=== PATIENT | female | born 1995 | race African-American/Black ===

== ENCOUNTER 2023-05-01 11:33 | Inpatient (IN) | payer OTHER ==
[2023-05-01 12:26] VITALS: BMI 26.3
[2023-05-01 13:11] LABS: BASO % 0.1 % (0-2.0); EOS % 0.8 % (0-4.5); HEMATOCRIT 38.3 % (32.4-45.2); HEMOGLOBIN 12.9 GM/dL (10.7-15.3); LYMPH % 11.3 % (8-40); MCH 32.4 pg (25.7-33.7); MCHC 33.7 g/dl (32.0-36.0); MEAN PLT VOLUME 8.3 fl (7.5-11.1); MONO % 5.6 % (3.8-10.2); NEUT % 82.2 % (42.8-82.8); PLATELET COUNT 284 10^3/uL (134-434); RBC 3.99 M/mm3 (3.60-5.2); RDW 13.1 % (11.6-15.6); WHITE BLOOD COUNT 9.6 K/mm3 (4.0-10.0)
[2023-05-01 13:20] LABS: POTASSIUM 4.3 mmol/L (3.5-5.1)
[2023-05-01 13:22] LABS: CALCIUM 9.4 mg/dL (8.5-10.1)
[2023-05-01 13:23] LABS: ALBUMIN 3.9 g/dl (3.4-5.0)
[2023-05-01 13:26] LABS: CREATININE 0.7 mg/dL (0.55-1.3)
[2023-05-01 13:27] LABS: TOT PROT 7.6 g/dl (6.4-8.2)
[2023-05-01 13:28] LABS: BILIRUBIN,TOTAL 0.5 mg/dL (0.2-1)
[2023-05-01] MEDS ORDERED: morphine SULFATE 4 MG/ML VIAL ONE (13:37)
[2023-05-01] MEDS: morphine SULFATE 4 MG/ML VIAL IVPUSH ONE (13:38)
[2023-05-01] MEDS ORDERED: morphine CARPU-JECT 4 MG/1 ML DISP.SYRIN IVPUSH ONE (13:45)
[2023-05-01] MEDS ORDERED: KETOROLAC TROMETHAMINE 30 MG/1 ML VIAL ONE (14:05)
[2023-05-01] MEDS ORDERED: LIDOCAINE 4% PATCH TP ONE (14:05)
[2023-05-01] MEDS: LIDOCAINE 4% PATCH TP ONE (14:52)
[2023-05-01] MEDS: SODIUM CHLORIDE 0.9% 500 ML INFUS.BAG IV ONE (14:53)
[2023-05-01] MEDS: KETOROLAC TROMETHAMINE 30 MG/1 ML VIAL IVPUSH ONE (14:53)
[2023-05-01 16:57] LABS: URINE APPEARANCE CLEAR; URINE BILIRUBIN NEGATIVE (NEGATIVE); URINE COLOR YELLOW; URINE GLUCOSE (UA) NEGATIVE (NEGATIVE); URINE KETONE 15 mg/dl (NEGATIVE); URINE NITRITE NEGATIVE (NEGATIVE); URINE PROTEIN NEGATIVE (NEGATIVE)
[2023-05-01 16:58] LABS: URINE LEUK ESTERASE NEGATIVE (NEGATIVE)
[2023-05-01] MEDS: methylPREDNISolone 8 MG TABLET PO ONE (18:29)
[2023-05-01] MEDS ORDERED: KETOROLAC TROMETHAMINE 15 MG/ML VIAL ONE (20:17)
[2023-05-01] MEDS: KETOROLAC TROMETHAMINE 15 MG/ML VIAL IVPUSH PRN (21:30)
[2023-05-01] MEDS: GABAPENTIN 400 MG CAPSULE PO SCH (23:36)
[2023-05-01] MEDS: ACETAMINOPHEN 500 MG TABLET (FP) PO PRN (23:36)
[2023-05-01] MEDS: LIDOCAINE PATCH REMOVAL MC ONE (23:38)
[2023-05-02 08:45] LABS: METHADONE, UR NEGATIVE (NEGATIVE); PHENCYCLIDINE,URINE NEGATIVE (NEGATIVE); URINE AMPHETAMINES NEGATIVE (NEGATIVE); URINE BENZODIAZEPINES NEGATIVE (NEGATIVE)
[2023-05-02 08:46] LABS: URINE BARBITURATES NEGATIVE (NEGATIVE)
[2023-05-02 08:47] LABS: COCAINE, UR NEGATIVE (NEGATIVE); OPIATES, URI POSITIVE (NEGATIVE)
[2023-05-02] MEDS ORDERED: KETOROLAC TROMETHAMINE 30 MG/1 ML VIAL IVPUSH PRN (08:59)
[2023-05-02] MEDS: morphine SULFATE 4 MG/ML VIAL IVPUSH PRN (10:01)
[2023-05-02] MEDS: PIPERACILLIN/TAZOB 3.375 GM 3.375 GM in DEXTROSE 5%-WATER - 50 ML IVPB SCH ×3 (10:06→17:41)
[2023-05-02] MEDS: VANCOMYCIN PREMIX 1.5 GM 1,500 MG/300 ML BAG IVPB SCH (12:47)
[2023-05-02] MEDS: ACETAMINOPHEN 500 MG TABLET (FP) PO SCH (14:41)
[2023-05-02] MEDS: LIDOCAINE 4% PATCH TP SCH (14:45)
[2023-05-02] MEDS: KETOROLAC TROMETHAMINE 30 MG/1 ML VIAL IVPUSH SCH (14:46)
[2023-05-02] MEDS ORDERED: ACETAMINOPHEN 1000 MG/100 ML BAG IVPB SCH (16:45)
[2023-05-02] MEDS ORDERED: VANCOMYCIN/WATER FOR INJ (PEG) 1,000 MG/200 ML BAG IVPB SCH (16:45)
[2023-05-02] MEDS: VANCOMYCIN HCL 1,500 MG in DEXTROSE 5%-WATER - 250 ML IVPB SCH (17:02)
[2023-05-02] MEDS: PANTOPRAZOLE SODIUM 40 MG VIAL IVPUSH SCH (17:21)
[2023-05-02] MEDS: oxyCODONE HCL 5 MG TABLET PO PRN (20:25)
[2023-05-02] MEDS: LIDOCAINE PATCH REMOVAL MC SCH (21:44)
[2023-05-03] MEDS: ACETAMINOPHEN 1000 MG/100 ML BAG IVPB SCH (00:48)
[2023-05-03] MEDS: morphine SULFATE 4 MG/ML VIAL IVPUSH PRN (02:55)
[2023-05-03 09:47] LABS: BASO % 0.1 % (0-2.0); EOS % 1.7 % (0-4.5); HEMATOCRIT 32.8 % (32.4-45.2); LYMPH % 13.8 % (8-40); MCHC 33.5 g/dl (32.0-36.0); MEAN CELL VOLUME 95.6 fl (80-96); MEAN PLT VOLUME 7.4 fl (7.5-11.1); MONO % 5.7 % (3.8-10.2); NEUT % 78.7 % (42.8-82.8); PLATELET COUNT 227 10^3/uL (134-434); RBC 3.43 M/mm3 (3.60-5.2); RDW 13.3 % (11.6-15.6)
[2023-05-03 10:19] LABS: POTASSIUM 3.2 mmol/L (3.5-5.1)
[2023-05-03 10:25] LABS: CREATININE 0.6 mg/dL (0.55-1.3)
[2023-05-03 10:26] LABS: BILIRUBIN,TOTAL 0.5 mg/dL (0.2-1)
[2023-05-03 10:29] LABS: ALBUMIN 2.8 g/dl (3.4-5.0)
[2023-05-03] MEDS: ENOXAPARIN NA (PORCINE) 40 MG/0.4 ML DISP.SYRIN SQ SCH (10:58)
[2023-05-03] MEDS: GABAPENTIN 400 MG CAPSULE PO SCH (10:58)
[2023-05-03 11:14] LABS: HIV INTERPRETATION NEGATIVE (NEGATIVE)
[2023-05-03] MEDS ORDERED: PANTOPRAZOLE 40 MG TABLET PO SCH (12:15)
[2023-05-03] MEDS: POTASSIUM CHLORIDE TABS 20 MEQ TABLET.ER (FP) PO ONE (13:50)
[2023-05-03] MEDS: morphine SULFATE 4 MG/ML VIAL IVPUSH ONE (15:28)
[2023-05-03 16:06] LABS: CSF APPEARANCE CLEAR (CLEAR); CSF COLOR COLORLESS (COLORLESS); CSF WBC 0 mm3 (0-5)
[2023-05-03] MEDS: oxyCODONE HCL 5 MG TABLET PO PRN (16:53)
[2023-05-03 16:55] LABS: BF GLUCOSE (CSF ONLY) 60 mg/dL (40-70)
[2023-05-04] MEDS: ACETAMINOPHEN 1000 MG/100 ML BAG IVPB ONE (05:46)
[2023-05-04 08:36] LABS: POTASSIUM 3.8 mmol/L (3.5-5.1)
[2023-05-04 08:40] LABS: ALBUMIN 2.8 g/dl (3.4-5.0); BLOOD UREA NITROGEN 7.3 mg/dL (7-18); CALCIUM 8.5 mg/dL (8.5-10.1)
[2023-05-04 08:43] LABS: CREATININE 0.6 mg/dL (0.55-1.3)
[2023-05-04 08:45] LABS: BASO % 0.1 % (0-2.0); BILIRUBIN,TOTAL 0.6 mg/dL (0.2-1); EOS % 1.9 % (0-4.5); HEMATOCRIT 32.3 % (32.4-45.2); HEMOGLOBIN 10.9 GM/dL (10.7-15.3); LYMPH % 6.6 % (8-40); MCH 32.2 pg (25.7-33.7); MCHC 33.9 g/dl (32.0-36.0); MEAN CELL VOLUME 95.1 fl (80-96); MONO % 4.5 % (3.8-10.2); NEUT % 86.9 % (42.8-82.8); PLATELET COUNT 233 10^3/uL (134-434); RDW 12.8 % (11.6-15.6); TOT PROT 6.3 g/dl (6.4-8.2); WHITE BLOOD COUNT 9.9 K/mm3 (4.0-10.0)
[2023-05-04] MEDS: PANTOPRAZOLE 40 MG TABLET PO SCH (10:26)
[2023-05-04] MEDS: LIDOCAINE 4% PATCH TP SCH (10:26)
[2023-05-04] MEDS ORDERED: VANCOMYCIN/WATER FOR INJ (PEG) 1,000 MG/200 ML BAG IVPB ONE (11:30)
[2023-05-04] MEDS: diphenhydrAMINE HCL 25 MG CAPSULE (FP) PO ONE (11:31)
[2023-05-04] MEDS: AZITHROMYCIN IVPB 500 MG/250 ML BAG IVPB SCH (12:44)
[2023-05-04] MEDS: ACETAMINOPHEN 1000 MG/100 ML BAG IVPB PRN (13:12)
[2023-05-04] MEDS: TRIMETHOBENZAMIDE HCL 200MG/2ML INJ IM PRN (18:26)
[2023-05-04] MEDS: NORTRIPTYLINE HCL 25 MG CAPSULE PO SCH (22:06)
[2023-05-05 10:02] LABS: BASO % 0.1 % (0-2.0); EOS % 2.7 % (0-4.5); HEMATOCRIT 31.8 % (32.4-45.2); HEMOGLOBIN 10.8 GM/dL (10.7-15.3); LYMPH % 14.3 % (8-40); MCH 32.2 pg (25.7-33.7); MEAN CELL VOLUME 94.5 fl (80-96); MEAN PLT VOLUME 7.9 fl (7.5-11.1); MONO % 5.1 % (3.8-10.2); NEUT % 77.8 % (42.8-82.8); PLATELET COUNT 274 10^3/uL (134-434); RBC 3.36 M/mm3 (3.60-5.2); WHITE BLOOD COUNT 11.6 K/mm3 (4.0-10.0)
[2023-05-05 10:19] LABS: CALCIUM 8.6 mg/dL (8.5-10.1)
[2023-05-05 10:21] LABS: ALBUMIN 2.6 g/dl (3.4-5.0); BLOOD UREA NITROGEN 5.9 mg/dL (7-18)
[2023-05-05 10:24] LABS: CREATININE 0.6 mg/dL (0.55-1.3)
[2023-05-05 10:25] LABS: BILIRUBIN,TOTAL 0.5 mg/dL (0.2-1); TOT PROT 6.2 g/dl (6.4-8.2)
[2023-05-05 10:43] LABS: ERYTHROCYTE SEDIMENTATION RATE 89 mm/hr (0-20)
[2023-05-05] MEDS: ACETAMINOPHEN 1000 MG/100 ML BAG IVPB PRN (17:45)
[2023-05-06 18:37] LABS: N-TERMINAL BNP 40.2 pg/ml (5-125)
[2023-05-07 08:50] LABS: BASO % 0.3 % (0-2.0); EOS % 4.8 % (0-4.5); HEMATOCRIT 32.3 % (32.4-45.2); HEMOGLOBIN 11.3 GM/dL (10.7-15.3); LYMPH % 36.4 % (8-40); MCH 32.8 pg (25.7-33.7); MEAN CELL VOLUME 93.7 fl (80-96); MEAN PLT VOLUME 7.5 fl (7.5-11.1); MONO % 5.6 % (3.8-10.2); NEUT % 52.9 % (42.8-82.8); PLATELET COUNT 358 10^3/uL (134-434); RBC 3.45 M/mm3 (3.60-5.2); RDW 12.9 % (11.6-15.6); WHITE BLOOD COUNT 5.6 K/mm3 (4.0-10.0)
[2023-05-07 08:55] LABS: POTASSIUM 4.3 mmol/L (3.5-5.1)
[2023-05-07 09:01] LABS: CALCIUM 9.1 mg/dL (8.5-10.1)
[2023-05-07 09:02] LABS: ALBUMIN 2.7 g/dl (3.4-5.0); BLOOD UREA NITROGEN 8.3 mg/dL (7-18)
[2023-05-07 09:06] LABS: CREATININE 0.6 mg/dL (0.55-1.3); TOT PROT 6.8 g/dl (6.4-8.2)
[2023-05-07 09:07] LABS: BILIRUBIN,TOTAL 0.2 mg/dL (0.2-1)
[2023-05-07] MEDS ORDERED: ALBUTEROL SO4 2.5/IPRATROPIUM 0.5 INH SOL 3 ML VIAL.NEB. NEB PRN (10:54)
[2023-05-07] MEDS ORDERED: PIPERACILLIN/TAZOBACTAM 3.375 GM VIAL IVPB ONE (17:13)
[2023-05-08 09:36] LABS: BASO % 0.3 % (0-2.0); EOS % 6.2 % (0-4.5); HEMATOCRIT 35.6 % (32.4-45.2); LYMPH % 42.8 % (8-40); MCH 31.7 pg (25.7-33.7); MCHC 33.7 g/dl (32.0-36.0); MEAN CELL VOLUME 94.1 fl (80-96); MEAN PLT VOLUME 7.5 fl (7.5-11.1); MONO % 6.8 % (3.8-10.2); NEUT % 43.9 % (42.8-82.8); PLATELET COUNT 471 10^3/uL (134-434); RBC 3.79 M/mm3 (3.60-5.2); RDW 12.5 % (11.6-15.6); WHITE BLOOD COUNT 5.6 K/mm3 (4.0-10.0)
[2023-05-08 09:52] LABS: CHLORIDE 106 mmol/L (98-107); POTASSIUM 4.3 mmol/L (3.5-5.1); SODIUM 138 mmol/L (136-145)
[2023-05-08 09:57] LABS: CALCIUM 9.4 mg/dL (8.5-10.1)
[2023-05-08 09:58] LABS: ANION GAP 6 mmol/L (4-13); BILIRUBIN,TOTAL 0.3 mg/dL (0.2-1); BLOOD UREA NITROGEN 9.5 mg/dL (7-18); CO2 26 mmol/L (21-32); GLUCOSE,RANDOM 76 mg/dL (74-106); TOT PROT 7.5 g/dl (6.4-8.2)
[2023-05-08 09:59] LABS: URIC ACID 2.3 mg/dL (2.6-7.2)
[2023-05-08 10:00] LABS: CREATININE 0.6 mg/dL (0.55-1.3); SGOT/AST 17 U/L (15-37); SGPT/ALT 13 U/L (13-61)
[2023-05-08 10:02] LABS: ALK PHOS 62 U/L (45-117)
[2023-05-08 11:39] LABS: ERYTHROCYTE SEDIMENTATION RATE 100 mm/hr (0-20)
[2023-05-08 17:08] LABS: CHOLESTEROL 201 mg/dL (50-200)
[2023-05-08 17:09] LABS: LDL CHOLESTEROL (ONLY SJRH) 153 mg/dL (5-100)
[2023-05-08 17:11] LABS: HDL CHOLESTEROL 35 mg/dL (40-60)
[2023-05-09 12:08] LABS: POTASSIUM 4.3 mmol/L (3.5-5.1)
[2023-05-09 12:10] LABS: BASO % 0.3 % (0-2.0); BLOOD UREA NITROGEN 14.3 mg/dL (7-18); CALCIUM 8.7 mg/dL (8.5-10.1); EOS % 5.8 % (0-4.5); HEMATOCRIT 35.6 % (32.4-45.2); LYMPH % 36.6 % (8-40); MCH 31.9 pg (25.7-33.7); MCHC 33.7 g/dl (32.0-36.0); MEAN CELL VOLUME 94.6 fl (80-96); MEAN PLT VOLUME 7.5 fl (7.5-11.1); MONO % 5.9 % (3.8-10.2); NEUT % 51.4 % (42.8-82.8); PLATELET COUNT 484 10^3/uL (134-434); RBC 3.76 M/mm3 (3.60-5.2); RDW 12.7 % (11.6-15.6); WHITE BLOOD COUNT 7.2 K/mm3 (4.0-10.0)
[2023-05-09 12:14] LABS: CREATININE 0.7 mg/dL (0.55-1.3)
[2023-05-09 12:15] LABS: BILIRUBIN,TOTAL 0.2 mg/dL (0.2-1); TOT PROT 7.2 g/dl (6.4-8.2)
[2023-05-09 12:59] LABS: ERYTHROCYTE SEDIMENTATION RATE 92 mm/hr (0-20)
[2023-05-10 10:22] LABS: BASO % 0.2 % (0-2.0); EOS % 5.2 % (0-4.5); HEMATOCRIT 33.3 % (32.4-45.2); HEMOGLOBIN 11.5 GM/dL (10.7-15.3); LYMPH % 28.9 % (8-40); MCH 32.2 pg (25.7-33.7); MCHC 34.5 g/dl (32.0-36.0); MEAN CELL VOLUME 93.4 fl (80-96); MEAN PLT VOLUME 7.5 fl (7.5-11.1); MONO % 5.3 % (3.8-10.2); NEUT % 60.4 % (42.8-82.8); PLATELET COUNT 507 10^3/uL (134-434); RBC 3.57 M/mm3 (3.60-5.2); RDW 12.8 % (11.6-15.6); WHITE BLOOD COUNT 7.2 K/mm3 (4.0-10.0)
[2023-05-10 10:43] LABS: POTASSIUM 4.2 mmol/L (3.5-5.1)
[2023-05-10 10:48] LABS: ALBUMIN 2.9 g/dl (3.4-5.0)
[2023-05-10 10:50] LABS: CALCIUM 9.1 mg/dL (8.5-10.1)
[2023-05-10 10:52] LABS: BLOOD UREA NITROGEN 14.8 mg/dL (7-18)
[2023-05-10 10:53] LABS: BILIRUBIN,TOTAL 0.2 mg/dL (0.2-1)
[2023-05-10 10:54] LABS: CREATININE 0.6 mg/dL (0.55-1.3)
[2023-05-10 11:18] LABS: ERYTHROCYTE SEDIMENTATION RATE 92 mm/hr (0-20)
[2023-05-10 16:08] LABS: ATYPICAL pANCA <1:20 titer (Neg:<1:20); C-ANCA <1:20 titer (Neg:<1:20)
[2023-05-10] MEDS: KETOROLAC TROMETHAMINE 15 MG/ML VIAL IVPUSH PRN (18:39)
[2023-05-10] MEDS: POLYETHYLENE GLYCOL (HEALTHYLAX) 3350 17 GM PACKET PO SCH (22:16)
[2023-05-12 15:47] VITALS: BP 113/67; PULSE 73; RESP 18; TEMP 98
== END 2023-05-12 17:55 | disposition home or self-care (01) | DRG 347 ==
LOC: JER 11:33 → JERBED 16:00 → J5S 22:28 → OBSVTOIN 05-03 14:18 → J5S 05-10 18:17
PROVIDERS: ADMIT Internal Medicine
DX: M54.16 Radiculopathy, lumbar region (principal); F44.6 Conversion disorder with sensory symptom or deficit; J18.9 Pneumonia, unspecified organism; M54.2 Cervicalgia; M79.604 Pain in right leg; R26.2 Difficulty in walking, not elsewhere classified; Z59.01 Sheltered homelessness
CPT/HCPCS: 0241U-QW; 36415; 62272; 70450-TC; 70551-TC; 71045-TC-FY; 71275-TC; 72132-TC; 72156-TC; 72157-TC; 72158-TC; 74174-TC; 80053; 80061; 80307; 81003; 82550; 82553; 82945; 82962; 83036; 83519; 83520; 83880; 84157; 84439; 84443; 84484; 84550; 84703; 85025; 85651; 86038; 86140; 86160; 86256; 86304; 86705; 86707; 86780; 87040; 87070; 87086; 87205; 87340; 87350; 87389; 87491; 87591; 87633; 87661; 87799; 87899; 87902; 93005; 93010; 93306-TC; 93970-TC; 94010; 97116-GP; 97162-GP; 99285-25; G0378; J0131; Q9967

== ENCOUNTER 2023-10-02 21:47 | Emergency (ER) | payer OTHER ==
[2023-10-02 22:01] VITALS: BP 122/87; PULSE 83; RESP 16; TEMP 99; BMI 25.8
== END 2023-10-02 23:38 | disposition home or self-care (01) ==
LOC: JER 21:47
DX: Z53.21 Procedure and treatment not carried out due to patient leaving prior to being seen by health care provider (principal)
CPT/HCPCS: 99281-25